=== PATIENT | female | born 1990 | race Caucasian/White ===

== ENCOUNTER 2020-03-12 16:00 | Emergency (ER) | payer SELFPAY ==
[~2020-03-12] VITALS: Ht 175.3 cm; Wt 59.0 kg
[2020-03-12 16:17] VITALS: BP_SYST 132
--- NOTE | 2020-03-12 16:21 | NUR ---
Patient triaged and placed in waiting room. VSS and patient appears in no acute distress at this time. Accompanied by self, awaiting available bed, and MD notified of need for MSE.
--- NOTE | 2020-03-12 16:30 | NUR ---
Pt brought by self, A&Ox4, pt presents to ER with mild SOB , states she was exposed to covid, O2 98%, VSS, respirations even and unlabored, speaking in full sentences, pt states she feels anxious about being exposed to covid.
--- NOTE | 2020-03-12 16:45 | NUR ---
Dr Calderon evaluating patient in the tent
--- NOTE | 2020-03-12 17:30 | NUR ---
Pt A&Ox4, speaking in full sentences, VSS, respirations even and unlabored.
[2020-03-12 18:25] VITALS: BP_SYST 134
--- NOTE | 2020-03-12 18:25 | NUR ---
Patient given written and verbal discharge instructions and verbalizes understanding. ER MD discussed with patient the results and treatment provided. Patient in stable condition. ID arm band removed. No Rx given. Patient educated on pain management and to follow up with PMD. Pain Scale 0/10. Opportunity for questions provided and answered. Medication side effect fact sheet provided.
== END 2020-03-12 18:25 | disposition home or self-care (01) ==
LOC: SED 16:00
DX: R06.02 Shortness of breath (principal); Z20.828 Contact with and (suspected) exposure to other viral communicable diseases
CPT/HCPCS: 99283; C9803; U0003

== ENCOUNTER 2020-06-08 23:15 | Emergency (ER) | payer MEDICAID, SELFPAY ==
[~2020-06-08] VITALS: Ht 175.3 cm; Wt 68.0 kg
[2020-06-08 23:15] VITALS: BP_SYST 140
[2020-06-08 23:54] LABS: BILIRUBIN,URINE NEGATIVE (NEGATIVE); BLOOD, URINE 1+ (NEGATIVE); COLOR,URINE YELLOW (YELLOW); GLUCOSE,URINE NEGATIVE (NEGATIVE); KETONES,URINE NEGATIVE (NEGATIVE); LEUKOCYTE ESTERASE ,URINE 1+ (NEGATIVE); NITRITE, URINE NEGATIVE (NEGATIVE); PH,URINE 5.5 (5.0-8.0); PROTEIN URINE NEGATIVE (NEGATIVE); UROBILINOGEN,URINE 0.2 (0.2-1.0)
[2020-06-09] LABS: CLARITY/URINE CLOUDY (CLEAR)
[2020-06-09] MEDS ORDERED: KETOROLAC TROMETHAMINE 60 MG/2 ML VIAL IM ONE
[2020-06-09 00:10] LABS: BACTERIA,URINE FEW /HPF (None Seen)
[2020-06-09 00:25] VITALS: BP_SYST 133
== END 2020-06-09 00:25 | disposition home or self-care (01) ==
LOC: SED 23:15
DX: N39.0 Urinary tract infection, site not specified (principal); F17.210 Nicotine dependence, cigarettes, uncomplicated; Z71.6 Tobacco abuse counseling
CPT/HCPCS: 81000-TC; 81025; 87086; 99283; J1885

== ENCOUNTER 2020-08-14 16:03 | Emergency (ER) | payer MEDICAID, SELFPAY ==
[~2020-08-14] VITALS: Ht 175.3 cm; Wt 63.5 kg
[2020-08-14 16:10] VITALS: BP_SYST 114
== END 2020-08-14 16:58 | disposition left against medical advice (07) ==
LOC: SED 16:03
DX: N75.0 Cyst of Bartholin's gland (principal); Z88.0 Allergy status to penicillin; Z88.8 Allergy status to other drugs, medicaments and biological substances
CPT/HCPCS: 99281